=== PATIENT | female | born 1990 | race Caucasian/White ===

== ENCOUNTER 2017-02-16 20:33 | Inpatient (IN) | payer OTHER ==
[~2017-02-16] VITALS: Ht 162.6 cm; Wt 81.6 kg
[~2017-02-16 20:33] MED LIST: ALPRAZOLAM2 M2 PO; CARISOPRODOL350 M1 PO; GABAPENTIN400 M2 PO; LEVSIN/SL0.125 MG SL; MIRENA1 EACH; MOBIC15 M1 PO; SEROQUEL XR150 M1 PO; SUBOXONE 8 MG-1 EACH SL; TRAZODONE HCL100 M1 PO; ZOFRAN4 M1 SL
--- NOTE | 2017-02-16 20:52 | ED AMS/SEIZURE/WEAK/DIZZY ---
History of Present Illness General Chief Complaint: ETOH/Drug Related Complaint Stated Complaint: BIBA, OVERDOSE ON MEDS Source: patient, EMS, police Exam Limitations: intoxication Vital Signs & Intake/Output Vital Signs & Intake/Output Vital Signs Date Time Temp Pulse Resp B/P Pulse O2 O2 Flow FiO2 Ox Delivery Rate 02/17 0957 97.3 74 18 114/68 99 Room Air 02/17 0650 97.8 72 18 107/52 97 Room Air 02/16 2129 100 Room Air 02/16 2035 98.3 87 16 129/63 100 Room Air ED Intake and Output 02/17 0000 02/16 1200 Intake Total Output Total Balance Patient 180 lb Weight Allergies Coded Allergies: NO KNOWN ALLERGIES (07/19/11) Reconcile Medications Alprazolam 2 MG TABLET 1 TAB PO BID ANXIETY (Reported) Buprenorphine HCl/Naloxone HCl (Suboxone 8 MG-2 MG Sl Film) 8 MG-2 MG FILM 2 FILM SL QAM MENTAL HEALTH (Reported) Carisoprodol (Unknown Strength) TABLET (Unknown Dose) UNKNOWN (Reported) Dextroamphetamine/Amphetamine (Adderall XR 30 MG Capsule) 30 MG CAP.ER.24H 1 CAP PO QAM ADD (Reported) Eszopiclone 3 MG TABLET 1 TAB PO QPM SLEEP (Reported) Fluoxetine HCl 20 MG CAPSULE 80 MG PO DAILY MENTAL HEALTH (Reported) Levonorgestrel (Mirena) 20 MCG/24 HOUR (5 YEARS) IUD CONTROL (Reported) Quetiapine Fumarate 200 MG TABLET 1 TAB PO QPM SLEEP/MENTAL HEALTH (Reported) Triage Nurses Notes Reviewed? yes HPI: Patient presents for evaluation of a medication overdose. Patient states that she was going to a democrat and wanted to "have a really good time". She took 6 Soma and 6 Xanax tablets approximately 3 PM. She took a shower and was getting ready for the democrat. She states however that her fianc became concerned about the way she was behaving and spoke with her mother, who called the police. Patient was brought to the emergency department by ambulance. She denies suicide ideation or attempt. She has no specific complaints at this time other than feeling a little sleepy. (LISA MAN,AV Vacne) Past History Travel History Traveled to [place] past 21 day No Medical History Any Pertinent Medical History? 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 No (LISA MAN,AV Vance) Review of Systems Review of Systems Constitutional: Reports: no symptoms. EENTM: Reports: no symptoms. Respiratory: Reports: no symptoms. Cardiovascular: Reports: no symptoms. GI: Reports: no symptoms. Genitourinary: Reports: no symptoms. Musculoskeletal: Reports: no symptoms. Skin: Reports: no symptoms. Neurological/Psychological: Reports: no symptoms. Hematologic/Endocrine: Reports: no symptoms. Immunologic/Allergic: Reports: no symptoms. All Other Systems: Reviewed and Negative (LISA MAN,AV Vance) Physical Exam Physical Exam General Appearance: see below Comments: Gen.: Well-nourished, well-developed, no acute respiratory distress. Head: Normocephalic, atraumatic. Eyes: Normal inspection bilaterally, mild nystagmus with extraocular movement testing Ears: Normal inspection bilaterally Nose: Normal inspection Throat/mouth : Moist mucosa Neck: Supple, full range of motion, no goiter Heart: Regular rate and rhythm, no murmurs rubs or gallops Lungs: Clear to auscultation bilaterally with normal air entry Chest: Nontender Back: Normal range of motion Abdomen: Soft, nontender, nondistended, normal bowel sounds Extremities: Normal range of motion grossly, equal radial pulses, no cyanosis clubbing or edema Neurologic: Cranial nerves grossly intact, speech is mildly slurred but otherwise appropriate Skin: warm and dry Psychiatric: Calm, cooperative, no apparent delusions or hallucinations Core Measures ACS in differential dx? No CVA/TIA Diagnosis: No Severe Sepsis Present: No Septic Shock Present: No (LISA MAN,AV Vance) Progress Differential Diagnosis: recreational drug overdose Plan of Care: Orders Procedure Date/time Status Admit to inpatient psych 02/17 1134 Active Continuous Observation Monitor 02/17 0811 Active ED CRISIS PSYCH CONSULT 02/17 0811 Active ETHANOL 02/16 2317 Complete COMPREHENSIVE METABOLIC PANEL 02/16 2317 Complete CBC WITHOUT DIFFERENTIAL 02/16 2317 Complete URINE 02/17 2132 Complete URINE DRUG SCREEN FOR ER ONLY 02/17 2132 Complete URINALYSIS 02/17 2132 Complete Laboratory Tests 02/16/175: Anion Gap 6, Estimated GFR > 60, BUN/Creatinine Ratio 21.7, Glucose 94, Calcium 9.5, Total Bilirubin 0.3, AST 22, ALT 32, Alkaline Phosphatase 52, Total Protein 7.5, Albumin 4.1, Globulin 3.4, Albumin/Globulin Ratio 1.2, CBC w Diff NO MAN DIFF REQ, RBC 4.79, MCV 72.4 L, MCH 23.0 L, RDW 14.3, MPV 7.1 L, Gran % 61.9, Lymphocytes % 31.1, Monocytes % 5.9, Eosinophils % 0.8, Basophils % 0.3, Absolute Granulocytes 4.4, Absolute Lymphocytes 2.2, Absolute Monocytes 0.4, Absolute Eosinophils 0.1, Absolute Basophils 0, PUBS MCHC 31.8 L, Serum Alcohol < 10.0 02/16/172135: Urine Opiates Screen < 100.00, Methadone Screen < 40, Barbiturate Screen < 60, Ur Phencyclidine Scrn < 6.00, Amphetamines Screen > 1450 H, U Benzodiazepines Scrn > 800 H, Urine Cocaine Screen < 50, Urine Cannabis Screen < 5.00, Urine Color YEL, Urine Clarity CLEAR, Urine pH 6.5, Ur Specific [place] 1.025, Urine Protein NEG, Urine Ketones TRACE H, Urine Nitrite NEG, Urine Bilirubin NEG, Urine Urobilinogen 0.2, Ur Leukocyte Esterase NEG, Ur Microscopic EXAM NOT REQUIRED, Urine Hemoglobin NEG, Urine Glucose NEG, Urine Test NEGATIVE Initial ED EKG: none Comments: 02/16/2017 11:48:58 PM Keely is without complaint and appears awake alert oriented and conversant. Her speech is clear. Both medications taken are rapid in onset and peak serum times of about 1-2 hours. I feel the patient is stable for discharge. She will contact her fianc for a ride home. 02/17/2017 12:50:24 AM patient has a ride in the morning. 02/17/2017 7:25:03 AM patient signed out to Dr. Allen at [facility] [employer] [facility] [employer], awaiting a ride home. (LISA MAN,AV Vance) Departure Departure Condition: Stable Referrals: MELISSA MAN,MADELIN Cardona (PCP/Family) Additional Instructions: Take your medications only as prescribed. Follow-up with your primary care physician on Sunday for reevaluation. Return if any concerns or sudden worsening. Do not take any of your medications until tomorrow morning (if prescribed as such). Departure Forms: Customer Survey General Discharge Information (LISA MAN,AV Vance) Departure Disposition: STILL A PATIENT Clinical Impression Primary Impression: Medication overdose Qualifiers: Encounter type: initial encounter Injury intent: accidental or unintentional Qualified Code: T50.901A - Poisoning by unspecified drugs, medicaments and biological substances, accidental (unintentional), initial encounter Secondary Impressions: Depression Psych Admission Note Psychiatric Admission: I have seen and evaluated KEELY BHATT. I have also reviewed all the pertinent lab results and diagnostic results. KEELY BHATT will be admitted to our inpatient Psychiatric unit for treatment and care. (MARY MAN,MOISES Nicholas)
[2017-02-16] MEDS ORDERED: FLUOXETINE HCL20 M2 PO (21:37)
[2017-02-16] MEDS ORDERED: ESZOPICLONE3 M1 PO (21:37)
[2017-02-16] MEDS ORDERED: CARISOPRODOL350 M1 (21:37)
[2017-02-16] MEDS ORDERED: QUETIAPINE FUM200 M1 PO (21:38)
[2017-02-16] MEDS ORDERED: ADDERALL XR 3030 MG PO (21:39)
[2017-02-16 23:42] LABS: ABSOLUTE BASOPHIL COUNT 0 /CUMM (0.0-0.2); ABSOLUTE EOSINOPHIL COUNT 0.1 /CUMM (0.0-0.7); ABSOLUTE GRANULOCYTE CT 4.4 /CUMM (1.4-6.5); ABSOLUTE LYMPH COUNT 2.2 /CUMM (1.2-3.4); ABSOLUTE MONOCYTE COUNT 0.4 /CUMM (0.10-0.60); BASOPHIL % 0.3 % (0.0-2.0); EOSINOPHIL % 0.8 % (0-5); GRANULOCYTE % 61.9 % (42.2-75.2); HEMATOCRIT 34.7 % (37-47); MEAN CORPUSCULAR HGB CONC 31.8 G/DL (33.0-37.0); MEAN CORPUSCULAR VOLUME 72.4 FL (81.0-99.0); MEAN PLATELET VOLUME 7.1 FL (7.4-10.4); PLATELET COUNT 350 /CUMM (130-400); RBC DISTRIBUTION WIDTH 14.3 % (11.5-14.5); RED BLOOD CELL CT 4.79 /CUMM (4.20-5.40)
--- NOTE | 2017-02-17 12:42 | ED PSYCH CRISIS CONSULTATION ---
Crisis Consult Basic Assessment Date of Consult: 02/17/17 Responsible Person/Accompanied By: VAMSI on a PEER Insurance Authorization: Insurance #1: Insurance name: JONATAN ANTHONY Phone number: Policy number: [id number] Group number: Authorization number: ED Provider: Patient's ED Provider: AV GONZALEZ MD Primary Care Physician: Patient's PCP: MADELIN TORRES MD PCP's Current Psychiatrist: "Dr. Sarmiento from [facility]." Chief Complaint: ETOH/Drug Related Complaint Patient's Quote: "" I took too many pills." Present Illness: The patient is a 26 year old, single, female presenting to the ED, last evening, on a PEER after taking an overdose of Soma and Xanax. The patient was evaluated this AM and had depressed mood and was tearful. The patient resides with her mother (Aimee Clements- who is an RN) and her fiance Brayan. She has no children, is not currently in school and is due to start a job at [employer] on February 23. The patient denies that she took the pills in a suicide attempt and states that she took "them to have a good time," because she was going to a green party. She states that she "has a high tolerance and did not know that this would happen." She was initially apprehensive to disclose any information and denied having any mental health symptoms, because she wanted to go home. She denied any history of suicide attempts, however per mother Aimee Clements ([phone]), she had a significant suicide attempt in August 2016, in which she left a suicide note and required a medical admission, before being admitted to the psychiatric unit ([facility]). The patient does admit to having a history of Heroin abuse, stating shes been on Suboxone,(Prescribed by "Dr. Nicholas") and that "shes been clean for 5-6 months. She does abuse her Xanax and Soma, however she was very hesitant to admit this and is still not open to admitting she has a problem with pills. She states that she is prescribed Soma, Xanax and Adderall and that she takes them as prescribed. Per mom, Aimee, she counted the patient's Xanax and that there is significantly less in the bottle, then should be. Of note, Aimee states she flushed all of the pills down the toilet, of note the patient states that she has refills at the pharmacy. The patient states that she has been in and out of rehabs, "about 15 of them," and that she does not think that rehab would be helpful at this time. She notes that she has been to multiple outpatient providers and that there are various reasons why she has had to change from provider to provider. The patient denies any current or history of HI / AH / VH / delusions. The patient would like to go home and does not see the need for inpatient treatment at this time, however is willing to sign in if she has to stay. SW spoke to the patients mother, Aimee Clements, who is very concerned for ther daughters safety. Aimee notes that the patient has been depressed and has a history of attempting to kill herself. Aimee notes that she does not believe that last evening was a suicide attempt, however she is not sure that the patient can be safe. Aimee notes that the patient has had ongoing substance abuse issues and that she has been abusing her prescribed medications. Aimee states, "she's going to ." Aimee states that if the patient does not get into treatment, that she will no longer allow her to live with her. Patient's Address: [address] [place] [address] Other Phone Number: Who Do You Live With? Mother (and dorota- Brayan) Family/Informants Interviewed: Mother Aimee Clements [phone] Allergies - Coded Allergies: NO KNOWN ALLERGIES (07/19/11) Current Medications - Scheduled Medications Alprazolam 2 MG TABLET 1 TAB PO BID ANXIETY #28 (Reported) Entered as Reported by YULISA NGUYEN on 11/24/16 1623 Buprenorphine HCl/Naloxone HCl (Suboxone 8 MG-2 MG Sl Film) 8 MG-2 MG FILM 2 FILM SL QAM MENTAL HEALTH #14 FILM (Reported) Entered as Reported by YULISA NGUYEN on 11/24/16 1625 Dextroamphetamine/Amphetamine (Adderall XR 30 MG Capsule) 30 MG CAP.ER.24H 1 CAP PO QAM ADD #30 (Reported) Entered as Reported by YULISA NGUYEN on 02/16/172138 Eszopiclone 3 MG TABLET 1 TAB PO QPM SLEEP #14 (Reported) Entered as Reported by YULISA NGUYEN on 02/16/172136 Fluoxetine HCl 20 MG CAPSULE 80 MG PO DAILY MENTAL HEALTH #90 (Reported) Entered as Reported by YULISA NGUYEN on 02/16/172136 Quetiapine Fumarate 200 MG TABLET 1 TAB PO QPM SLEEP/MENTAL HEALTH #30 ( Reported) Entered as Reported by YULISA NGUYEN on 02/16/172137 Miscellaneous Medications Carisoprodol (Unknown Strength) TABLET (Unknown Dose) UNKNOWN #30 (Reported) Entered as Reported by YULISA NGUYEN on 02/16/172136 Levonorgestrel (Mirena) 20 MCG/24 HOUR (5 YEARS) IUD CONTROL (Reported) Entered as Reported by YULISA NGUYEN on 11/24/16 1625 Laboratory Results: Laboratory Tests 02/16/172334: Anion Gap 6, Estimated GFR > 60, BUN/Creatinine Ratio 21.7, Glucose 94, Calcium 9.5, Total Bilirubin 0.3, AST 22, ALT 32, Alkaline Phosphatase 52, Total Protein 7.5, Albumin 4.1, Globulin 3.4, Albumin/Globulin Ratio 1.2, CBC w Diff NO MAN DIFF REQ, RBC 4.79, MCV 72.4 L, MCH 23.0 L, RDW 14.3, MPV 7.1 L, Gran % 61.9, Lymphocytes % 31.1, Monocytes % 5.9, Eosinophils % 0.8, Basophils % 0.3, Absolute Granulocytes 4.4, Absolute Lymphocytes 2.2, Absolute Monocytes 0.4, Absolute Eosinophils 0.1, Absolute Basophils 0, PUBS MCHC 31.8 L, Serum Alcohol < 10.0 02/16/172135: Urine Opiates Screen < 100.00, Methadone Screen < 40, Barbiturate Screen < 60, Ur Phencyclidine Scrn < 6.00, Amphetamines Screen > 1450 H, U Benzodiazepines Scrn > 800 H, Urine Cocaine Screen < 50, Urine Cannabis Screen < 5.00, Urine Color YEL, Urine Clarity CLEAR, Urine pH 6.5, Ur Specific [place] 1.025, Urine Protein NEG, Urine Ketones TRACE H, Urine Nitrite NEG, Urine Bilirubin NEG, Urine Urobilinogen 0.2, Ur Leukocyte Esterase NEG, Ur Microscopic EXAM NOT REQUIRED, Urine Hemoglobin NEG, Urine Glucose NEG, Urine Test NEGATIVE Past History Past Medical History Neurological: migraine, SEIZURE (NO MEDS) EENT: NONE Cardiovascular: NONE Respiratory: NONE Gastrointestinal: NONE Hepatic: NONE Renal: NONE Musculoskeletal: chronic back pain Psychiatric: anxiety, depression, IV drug abuse, overdose Endocrine: NONE Blood Disorders: NONE Cancer(s): NONE TRASH MAN/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 Physical Limitations (Interventions): The patient does admit to having chronic pain issues. Psychiatric Treatment History Psych Treatment Psychiatric Treatment Yes Inpatient Treatment Yes Outpatient Treatment Yes Location of Treatment Inpatient at [facility] and multiple outpatient providers Reason for Treatment Suicide attempt and anxiety Dates of Treatment IP at [place] August 2016 and OP multiple dates Response to Treatment The patient was not able to state whether it was helpful or not. Diagnosis by History: anxiety, Poly Substance Substance Use/Abuse History Drug Use/Abuse Substances Used/Abused Yes Substance Used/Abused Benzodiazepines First Use Unclear Last Used Yesterday: 02/17/2017 How much used/taken "6 Soma and 6 Xanax" How often The patient is not forthcoming with substance abuse info For how long Unclear Substance Abuse Treatment Substance Abuse Treatment Past Substance Abuse TX Yes Inpatient Treatment Yes Outpatient Treatment Yes Location of Treatment "multiple rehabs in [place]" and various OP providers Reason for Treatment Heroin abuse Dates of Treatment She states last IP was "2 years ago." Response to Treatment The patient has been on Suboxone and has not sued Heroin in 5-6 months. Comments: N/A Current Mental Status Mental Status Orientation: Person, Place, Situation Affect: Depressed, Sad Speech: WNL Neuro-vegetative: The patient was guarded and denied all symptoms at this time. Per Mother she is depressed and has a poor view of herself. Appearance Appearance- Dress/Hygiene: The patient was sitting in the chair, in hospital attire and was neat , clean and well kempt. She had poor eye contact through the evaluation. Behaviors Thought Process: WNL Thought Content: WNL Memory: WNL Insight: Fair SI/HI Risk Assessment Past Suicidal Ideation/Attempts Yes (1 previous attempt) Current Suicidal Ideation/Att No Past Homicidal Ideation/Att: No Current Homicidal Ideation/Attempts No Degree of Intent: The patient took an intentional overdose of Xanax and Soma, she denies that it was a suicide attempt, however states she took 12 pills at one time., The patient did have a significant suicide attempt in August of 2016. Danger To: Self Gravely Disabled: Lack of Insight, Poor Judgment Risk Factors: history of suicide atmpts, SA/MH hospitalized, substance abuse, poor impulse control Lethality Ratin PTSD Checklist PTSD Done? patient declined (Denies Trauma or abuse hx.) ED Management Sitter: Yes Restraints: No DSM5/PS Stressors/Medical Prob Diagnosis' (DSM 5, Stressors, Medical): F32.9 Unspecified Depressive Disorder, F41.9 Unspecified Anxiety Disorder and F13.20 Sedative, Hypnotic and Anxiolytic Disorder. Medical: Unremarkable Stressors: Relationship issues with mother, school, finances. Current GAF: 28 Comments: N/A Departure Disposition Psych Medical Clearance Date: 02/17/17 Medically Cleared at: 0700 Time Started: 1000 Time Ended: 1145 Psychiatrist Consulted: Weston MAN,Edward Date Disposition Established: 02/17/17 Time Disposition Established: 1145 Plan for Disposition - Modality: Inpatient Psychiatry Facility: [facility] Contact: N/A Telephone: N/A Rationale for Disposition: The patient was brought to ED on a PEER, after taking an overdose of Soma and Xanax. The patient presents depressed, anxious and is tearful. She is guarded and demonstrates poor judegement. She does have a significant history of substance abuse issues. Case discussed with Dr. Ontiveros and he finds her to be an acute risk to self and in need of an inpatient admission at this time. The patient did sign a voluntary form. Type of IP Admission: Voluntary Additional Instructions: N/A Referrals MELISSA MAN,MADELIN Cardona (PCP/Family)
--- NOTE | 2017-02-17 12:51 | IP CRISIS DIAG ASSESS PSYCH ---
See Addendum Diagnostic Assessment Basic Assessment Insurance Authorization: Insurance #1: Insurance name: JONATAN ANTHONY Phone number: Policy number: [id number] Group number: Authorization number: Primary Care Physician: Patient's PCP: MADELIN TORRES MD PCP's Patient's Quote: " I took too many pills." Present Illness: The patient is a 26 year old, single, female presenting to the ED, last evening, on a PEER after taking an overdose of Soma and Xanax. The patient was evaluated this AM and had depressed mood and was tearful. The patient resides with her mother (Aimee Clements- who is an RN) and her fiance Brayan. She has no children, is not currently in school and is due to start a job at [employer] on February 23. The patient denies that she took the pills in a suicide attempt and states that she took "them to have a good time," because she was going to a libertarian. She states that she "has a high tolerance and did not know that this would happen." She was initially apprehensive to disclose any information and denied having any mental health symptoms, because she wanted to go home. She denied any history of suicide attempts, however per mother Aimee Clements ([phone]), she had a significant suicide attempt in August 2016, in which she left a suicide note and required a medical admission, before being admitted to the psychiatric unit ([facility]). The patient does admit to having a history of Heroin abuse, stating shes been on Suboxone,(Prescribed by "Dr. Nicholas") and that "shes been clean for 5-6 months. She does abuse her Xanax and Soma, however she was very hesitant to admit this and is still not open to admitting she has a problem with pills. She states that she is prescribed Soma, Xanax and Adderall and that she takes them as prescribed. Per mom, Aimee, she counted the patient's Xanax and that there is significantly less in the bottle, then should be. Of note, Aimee states she flushed all of the pills down the toilet, of note the patient states that she has refills at the pharmacy. The patient states that she has been in and out of rehabs, "about 15 of them," and that she does not think that rehab would be helpful at this time. She notes that she has been to multiple outpatient providers and that there are various reasons why she has had to change from provider to provider. The patient denies any current or history of HI / AH / VH / delusions. The patient would like to go home and does not see the need for inpatient treatment at this time, however is willing to sign in if she has to stay. HANNA spoke to the patients mother, Aimee Clements, who is very concerned for ther daughters safety. Aimee notes that the patient has been depressed and has a history of attempting to kill herself. Aimee notes that she does not believe that last evening was a suicide attempt, however she is not sure that the patient can be safe. Aimee notes that the patient has had ongoing substance abuse issues and that she has been abusing her prescribed medications. Aimee states, "she's going to ." Aimee states that if the patient does not get into treatment, that she will no longer allow her to live with her. Patient's Address: [address] [place] [address] Other Phone Number: Who Do You Live With? Mother (and dorotaCosta Brayan) Feel Safe Where You Live? Yes Feel Safe in Your Relationship Yes Marital Status: single Do You Have Children? No Primary Language? Belgian Family/Informants Interviewed: Mother Aimee Clements [phone] Allergies - Coded Allergies: NO KNOWN ALLERGIES (07/19/11) Current Medications - Scheduled Medications Alprazolam 2 MG TABLET 1 TAB PO BID ANXIETY #28 (Reported) Entered as Reported by YULISA NGUYEN on 11/24/16 1623 Buprenorphine HCl/Naloxone HCl (Suboxone 8 MG-2 MG Sl Film) 8 MG-2 MG FILM 2 FILM SL QAM MENTAL HEALTH #14 FILM (Reported) Entered as Reported by YULISA NGUYEN on 11/24/16 1625 Dextroamphetamine/Amphetamine (Adderall XR 30 MG Capsule) 30 MG CAP.ER.24H 1 CAP PO QAM ADD #30 (Reported) Entered as Reported by YULISA NGUYEN on 02/16/17 2139 Eszopiclone 3 MG TABLET 1 TAB PO QPM SLEEP #14 (Reported) Entered as Reported by YULISA NGUYEN on 02/16/172136 Fluoxetine HCl 20 MG CAPSULE 80 MG PO DAILY MENTAL HEALTH #90 (Reported) Entered as Reported by YULISA NGUYEN on 02/16/172136 Quetiapine Fumarate 200 MG TABLET 1 TAB PO QPM SLEEP/MENTAL HEALTH #30 ( Reported) Entered as Reported by YULISA NGUYEN on 02/16/172137 Miscellaneous Medications Carisoprodol (Unknown Strength) TABLET (Unknown Dose) UNKNOWN #30 (Reported) Entered as Reported by YULISA NGUYEN on 02/16/172136 Levonorgestrel (Mirena) 20 MCG/24 HOUR (5 YEARS) IUD CONTROL (Reported) Entered as Reported by YULISA NGUYEN on 11/24/161624 Consequences of Psych Med Use: N/A Comment: N/A Lab Results: Laboratory Tests 02/16/172334: Anion Gap 6, Estimated GFR > 60, BUN/Creatinine Ratio 21.7, Glucose 94, Calcium 9.5, Total Bilirubin 0.3, AST 22, ALT 32, Alkaline Phosphatase 52, Total Protein 7.5, Albumin 4.1, Globulin 3.4, Albumin/Globulin Ratio 1.2, CBC w Diff NO MAN DIFF REQ, RBC 4.79, MCV 72.4 L, MCH 23.0 L, RDW 14.3, MPV 7.1 L, Gran % 61.9, Lymphocytes % 31.1, Monocytes % 5.9, Eosinophils % 0.8, Basophils % 0.3, Absolute Granulocytes 4.4, Absolute Lymphocytes 2.2, Absolute Monocytes 0.4, Absolute Eosinophils 0.1, Absolute Basophils 0, PUBS MCHC 31.8 L, Serum Alcohol < 10.0 02/16/172135: Urine Opiates Screen < 100.00, Methadone Screen < 40, Barbiturate Screen < 60, Ur Phencyclidine Scrn < 6.00, Amphetamines Screen > 1450 H, U Benzodiazepines Scrn > 800 H, Urine Cocaine Screen < 50, Urine Cannabis Screen < 5.00, Urine Color YEL, Urine Clarity CLEAR, Urine pH 6.5, Ur Specific Lebo 1.025, Urine Protein NEG, Urine Ketones TRACE H, Urine Nitrite NEG, Urine Bilirubin NEG, Urine Urobilinogen 0.2, Ur Leukocyte Esterase NEG, Ur Microscopic EXAM NOT REQUIRED, Urine Hemoglobin NEG, Urine Glucose NEG, Urine Test NEGATIVE Toxicology Screen Completed? Yes Results: positive (Amphetamines and Benzodiazepin) Symptoms of Use: N/A Past History Past Medical History Medical History: None/Denies Past Surgical History Surgical History non-contributory, D&C 4 Abuse/Trauma History Trauma History/Current Trauma: Denies Legal History Current Legal Status: Open case in [place] for retail theft, that she needs to take care of. Have you ever been arrested? Yes Number of Arrests: 0 (Unclear- Guarded) Pending Court Dates: The patient denies any open court dates, but states that she needs to go to [place] to take care of an arrest. Office Support Assistant N/A Psychosocial History Strengths/Capabilities: The patient has stable living and has good support from her mother and fiance. Physical Limitations (Interventions): The patient does admit to having chronic pain issues. Psychiatric Treatment History Psych Treatment Psychiatric Treatment Yes Inpatient Treatment Yes Outpatient Treatment Yes Location of Treatment Inpatient at [facility] and multiple outpatient providers Reason for Treatment Suicide attempt and anxiety Dates of Treatment IP at [place] August 2016 and OP multiple dates Response to Treatment The patient was not able to state whether it was helpful or not. Diagnosis by History: anxiety, Poly Substance Risk Factors: history of suicide atmpts, SA/MH hospitalized, substance abuse, poor impulse control Substance Use/Abuse History Drug Use/Abuse minimum 12mo Hx 1 Substances Used/Abused Yes Substance Used/Abused Benzodiazepines First Use Unclear Last Used Yesterday: 02/17/2017 How much used/taken "6 Soma and 6 Xanax" How often The patient is not forthcoming with substance abuse info For how long Unclear Drug Use/Abuse minimum 12mo Hx 2 Substances Used/Abused Yes Substance Used/Abused Benzodiazepines (and Soma) First Use Unclear Last Used Yesterday: 02/17/2017 How much used/taken The patient is not forthcoming with information re: abusing medications How often She does admit to taking more then prescribed, sometimes. For how long Unclear Substance Abuse Treatment Substance Abuse Treatment Past Substance Abuse [place] Yes Inpatient Treatment Yes Outpatient Treatment Yes Location of Treatment "multiple rehabs in [place]" and various OP providers Reason for Treatment Heroin abuse Dates of Treatment She states last IP was "2 years ago." Response to Treatment The patient has been on Suboxone and has not sued Heroin in 5-6 months. Comments: The patient is currently on Suboxone and has not used Heroin in 5-6 months. Sexual History Sexual Concerns: None noted Education History Highest Level of Education: some college Preferred Learning Style: Unclear Current Mental Status Mental Status Orientation: Person, Place, Situation Affect: Depressed, Sad Speech: WNL Neuro-vegetative: The patient was guarded and denied all symptoms at this time. Per Mother she is depressed and has a poor view of herself. Appearance Appearance- Dress/Hygiene: The patient was sitting in the chair, in hospital attire and was neat , clean and well kempt. She had poor eye contact through the evaluation. Behaviors Thought Process: WNL Thought Content: WNL Memory: WNL Insight: Fair SI/HI Risk Assessment - Minimum 6mo History- Past Suicidal Ideation/Attempts Yes (1 previous attempt) Current Suicidal Ideation/Att No Past Homicidal Ideation/Att: No Current Homicidal Ideation/Attempts No Degree of Intent: The patient took an intentional overdose of Xanax and Soma, she denies that it was a suicide attempt, however states she took 12 pills at one time. The patient did have a significant suicide attempt in August of 2016. Danger To: Self Gravely Disabled: Lack of Insight, Poor Judgment Risk Factors: history of suicide atmpts, SA/MH hospitalized, substance abuse, poor impulse control Lethality Ratin Needs/Init TX Plan/Goals: Admit to the inpatient unit to maintain safety and stabilize symptoms. Participate in family, group and individual therapy. Work with treatment team to transition to care in the community. AUDIT-C Questionnaire: AUDIT-C Questionnaire: Response Value ETOH use in the past year Monthly or less 1 # drinks typical/day Doesn't Drink 0 6 or > drinks per occasion Never 0 Total 1 DSM5/PS Stressors/Medical Prob Diagnosis' (DSM 5, Stressors, Medical): F32.9 Unspecified Depressive Disorder, F41.9 Unspecified Anxiety Disorder and F13.20 Sedative, Hypnotic and Anxiolytic Disorder. Medical: Unremarkable Stressors: Relationship issues with mother, school, finances. Current GAF: 28 Comments: N/A
--- NOTE | 2017-02-17 12:58 | SOCIAL WORKER SOCIAL HX PSYCH ---
Social History Basic Assessment Insurance Authorization: Insurance #1: Insurance name: JONATAN ANTHONY Phone number: Policy number: [id number] Group number: Authorization number: Curr Source of Income/Entitlements: She is supported by her mother and dorota Primary Care Physician: Patient's PCP: MADELIN TORRES MD PCP's Present Problem: The patient is a 26 year old, single, female presenting to the ED, last evening, on a PEER after taking an overdose of Soma and Xanax. The patient was evaluated this AM and had depressed mood and was tearful. The patient resides with her mother (Aimee Clements- who is an RN) and her fimarley Schmidt. She has no children, is not currently in school and is due to start a job at [employer] on February 23. The patient denies that she took the pills in a suicide attempt and states that she took "them to have a good time," because she was going to a alliance party. She states that she "has a high tolerance and did not know that this would happen." She was initially apprehensive to disclose any information and denied having any mental health symptoms, because she wanted to go home. She denied any history of suicide attempts, however per mother Aimee Clements ([phone]), she had a significant suicide attempt in August 2016, in which she left a suicide note and required a medical admission, before being admitted to the psychiatric unit ([facility]). The patient does admit to having a history of Heroin abuse, stating shes been on Suboxone,(Prescribed by "Dr. Nicholas") and that "shes been clean for 5-6 months. She does abuse her Xanax and Soma, however she was very hesitant to admit this and is still not open to admitting she has a problem with pills. She states that she is prescribed Soma, Xanax and Adderall and that she takes them as prescribed. Per mom, Aimee, she counted the patient's Xanax and that there is significantly less in the bottle, then should be. Of note, Aimee states she flushed all of the pills down the toilet, of note the patient states that she has refills at the pharmacy. The patient states that she has been in and out of rehabs, "about 15 of them," and that she does not think that rehab would be helpful at this time. She notes that she has been to multiple outpatient providers and that there are various reasons why she has had to change from provider to provider. The patient denies any current or history of HI / AH / VH / delusions. The patient would like to go home and does not see the need for inpatient treatment at this time, however is willing to sign in if she has to stay. HANNA spoke to the patients mother, Aimee Clements, who is very concerned for ther daughters safety. Aimee notes that the patient has been depressed and has a history of attempting to kill herself. Aimee notes that she does not believe that last evening was a suicide attempt, however she is not sure that the patient can be safe. Aimee notes that the patient has had ongoing substance abuse issues and that she has been abusing her prescribed medications. Aimee states, "she's going to ." Aimee states that if the patient does not get into treatment, that she will no longer allow her to live with her. Primary Language? Hungarian Living Situation Other Living Arrangement: relative's/guardian's anuradha (Lives with her mother) Residential Care/Treatment Fac N/A Feel Safe Where You Are Living Yes Feel Safe in Relationships? Yes Comments: N/A Allergies - Coded Allergies: NO KNOWN ALLERGIES (07/19/11) Current Medications - Scheduled Medications Alprazolam 2 MG TABLET 1 TAB PO BID ANXIETY #28 (Reported) Entered as Reported by YULISA NGUYEN on 11/24/16 1623 Buprenorphine HCl/Naloxone HCl (Suboxone 8 MG-2 MG Sl Film) 8 MG-2 MG FILM 2 FILM SL QAM MENTAL HEALTH #14 FILM (Reported) Entered as Reported by YULISA NGUYEN on 11/24/16 1625 Dextroamphetamine/Amphetamine (Adderall XR 30 MG Capsule) 30 MG CAP.ER.24H 1 CAP PO QAM ADD #30 (Reported) Entered as Reported by YULISA NGUYEN on 02/16/17 2139 Eszopiclone 3 MG TABLET 1 TAB PO QPM SLEEP #14 (Reported) Entered as Reported by YULISA NGUYEN on 02/16/17 2137 Fluoxetine HCl 20 MG CAPSULE 80 MG PO DAILY MENTAL HEALTH #90 (Reported) Entered as Reported by YULISA NGUYEN on 02/16/172136 Quetiapine Fumarate 200 MG TABLET 1 TAB PO QPM SLEEP/MENTAL HEALTH #30 ( Reported) Entered as Reported by YULISA NGUYEN on 02/16/172137 Miscellaneous Medications Carisoprodol (Unknown Strength) TABLET (Unknown Dose) UNKNOWN #30 (Reported) Entered as Reported by YULISA NGUYEN on 02/16/172136 Levonorgestrel (Mirena) 20 MCG/24 HOUR (5 YEARS) IUD CONTROL (Reported) Entered as Reported by YULISA NGUYEN on 11/24/16 1625 Consequences of Psych Med Use: N/A Comments: N/A Past History Past Medical History Neurological: migraine, SEIZURE (NO MEDS) EENT: NONE Cardiovascular: NONE Respiratory: NONE Gastrointestinal: NONE Hepatic: NONE Renal: NONE Musculoskeletal: chronic back pain Psychiatric: anxiety, depression, IV drug abuse, overdose Endocrine: NONE Blood Disorders: NONE Cancer(s): NONE SUMATRA OPENER/Reproductive: NONE Past Surgical History Surgical History: unobtainable /Family History Place/Country of Origin: [place], [place] Childhood Family Constellation: The patient states that she was raised by her mother, with a sister and a brother. She is not clear about how present her father was. Primary Childhood Caretakers: mother Family Life During Childhood: "it was good." The patient did become upset when she was discussing her mother always being at work and being hard on her. Explain: N/A Mother's Age (Current/): 0 (Unclear) Relationship w/Mother: The patient notes that her mother "is very dramatic." She does live with her mother and is primarily supported by mother. Father's Age (Current/): 0 (Unclear) Relationship w/Father: The patient did not elaborate on her relationship with her father. Any Sibling(s)? Yes Sibling's Gender(s)/Age(s): male Sibling 1:, female Sibling 2: Relationship w/Sibling(s): The patient states that she does not really have a relationship with her siblings. Relationship w/Friends: The patient does have a very supportive fiance. Family Psych/Sub Abuse/Add Hx: The patient does note some family members with drug and alcohol abuse. Number of Pregnancies: 1 Number of Miscarriages: 0 Number of Abortions: 1 Other Comments: N/A Abuse/Trauma History Trauma History/Current Trauma: Denies Abuse/Trauma Treatment: N/A Legal History Legal Guardian/Address/Phone: Self Current Legal Status: none, The patient notes that she does have some an old arrest that she needs to take care of in [place], Retail theft. Pending Court Dates: N/A Have you ever been arrested Yes Number of Arrests: 0 (Unclear- Guarded) Hx of Juvenile Legal Charges? No (Unknown) Hx of Adult Legal Charges? Yes If Yes: "Retail theft for $42.53. List/Date Most Recent Lgl Chgs: Retail theft Chgs/Dts/Incarcerations/Sentnc Retail theft in [place] Civil Proceedings: N/A Domestic Relations Court: N/A Child Protective Serv Involvmnt N/A Staff Pharmacist Hospital N/A Psychosocial History Primary Support System: mother, fiance Strengths/Capabilities: The patient has stable living and has good support from her mother and fiance. Weaknesses: The patient has significant substance abuse issues. Physical Limitations (Interventions): The patient does admit to having chronic pain issues. Last Physical: Unknown History of Seizures? No (Pt. denies) History of Blackouts? No (Pt. denies) ADL Limitations: N/A Downs/Social/Peer Relations The patient states that she isolates at home and spends time with her mother and fiance. Meaningful Activities: None noted Childhood Mosque: no latter day stated Current Mandaeism Affiliation: no latter day stated Is Spirituality Important to You? "No" Cultural/Ethnic Issues: None noted Are There Developmental Issues? No Psychiatric Treatment History Psych Treatment Inpatient Treatment Yes Outpatient Treatment Yes Location of Treatment Inpatient at [facility] and multiple outpatient providers Reason for Treatment Suicide attempt and anxiety Dates of Treatment IP at [facility] August 2016 and OP multiple dates Response to Treatment The patient was not able to state whether it was helpful or not. Current Morals Squad Police Officer: "Dr. Sarmiento" in [place] Treatment of Prior Episodes: Multiple individual providers, the patient did not elaborate on specifics. Diagnosis: anxiety, Poly Substance Psychodynamic Issues: The patient states that she has always had issues with her mother. Risk Factors: history of suicide atmpts, SA/MH hospitalized, substance abuse, poor impulse control Substance Use/Abuse History Drug Use/Abuse 1 Substance Used/Abused Benzodiazepines (and Soma) First Use Unclear Last Used Yesterday: 02/17/2017 How much used/taken The patient is not forthcoming with information re: abusing medications How often She does admit to taking more then prescribed, sometimes. For how long Unclear Drug Use/Abuse 2 Substance Used/Abused Heroin First Use Unclear Last Used "5-6 months ago" How much used/taken Unclear How often Unclear For how long Unclear Route of use Unclear Have Had Periods of Sobriety? Yes Explain: The patient states that she has been on Suboxone and has been clean from Heroin for 5-6 months ago. The patient considered herself to be "clean," however does admit to abusing her Xanax and Soma. Relapse History? Yes Explain: Despite going to multiple treatment facilities the patient continues to abuse Xanax and Soma. Have You Ever Attended AA? No Do You Attend AA Currently? No Do You Have a Sponsor? No Other Community Resources Used: None noted Symptoms of Use: N/A Substance Abuse Treatment Substance Abuse Treatment Inpatient Treatment Yes Outpatient Treatment Yes Location of Treatment "multiple rehabs in [place]" and various OP providers Reason for Treatment Heroin abuse Dates of Treatment She states last IP was "2 years ago." Response to Treatment The patient has been on Suboxone and has not sued Heroin in 5-6 months. Comments: N/A Sexual History Sexual Concerns: None noted Education History Highest Level of Education: some college Highest Grade Completed: Graduated High School Vocational Year Completed: N/A Number of College Years: 3 College Degree/Major: The pt. did not finish a degree Other Degree(s): N/A Preferred Learning Style: Unclear HX of Learning Difficulties: None reported Barriers to Learning: None reported Special Communication Needs: None reported Employment History Employment Unemployed Not in Labor Force: The patient states that she has not worked in 2 years, secondary to her "record." She notes that she will be starting a new job on 02/23 at [employer]. Vocation/Occupational Hx: N/A No. of Jobs in Last 5 Years: 0 (Unclear) Attendance: N/A Comments: N/A History Have You Been in The ? No If Yes, Explain: N/A Type of Discharge: N/A Date of Discharge: N/A Current Mental Status Mental Status Orientation: Person, Place, Situation Affect: Depressed, Sad Speech: WNL Neuro-vegetative: The patient was guarded and denied all symptoms at this time. Per Mother she is depressed and has a poor view of herself. Appearance Appearance- Dress/Hygiene: The patient was sitting in the chair, in hospital attire and was neat , clean and well kempt. She had poor eye contact through the evaluation. Behaviors Thought Process: WNL Thought Content: WNL Memory: WNL Insight: Fair SI/HI Risk Assessment Past Suicidal Ideation/Attempts Yes (1 previous attempt) Current Suicidal Ideation/Att No Past Homicidal Ideation/Att: No Current Homicidal Ideation/Attempts No Degree of Intent: The patient took an intentional overdose of Xanax and Soma, she denies that it was a suicide attempt, however states she took 12 pills at one time. The patient did have a significant suicide attempt in August of 2016. Danger To: Self Gravely Disabled: Lack of Insight, Poor Judgment Risk Factors: High Anxiety/Distress, SA/MH Hospitalization(s), Substance Abuse Lethality Ratin - Conclusion and Recommendations for treatment - and discharge planning Summary: The patient was brought to ED on a PEER, after taking an overdose of Soma and Xanax. The patient presents depressed, anxious and is tearful. She is guarded and demonstrates poor judegement. She does have a significant history of substance abuse issues. Case discussed with Dr. Ontiveros and he finds her to be an acute risk to self and in need of an inpatient admission at this time. The patient did sign a voluntary form.
[2017-02-17 13:55] VITALS: BP 115/57
[2017-02-17 16:41] VITALS: BP 124/65
[2017-02-17 19:35] VITALS: BP 128/62
[2017-02-17 20:09] VITALS: BP 128/62
[2017-02-18] VITALS (8 sets, daily range): BP systolic 117–130; BP diastolic 58–71
--- NOTE | 2017-02-18 10:31 | Cons- Medical ---
General Information and HPI Consulting Request Date of Consult: 02/17/17 Requested By: ANNETTA MAN,SKYLER Vickers Reason for Consult: Medical H & P Source of Information: patient, old records Exam Limitations: no limitations History of Present Illness: 26-year-old young woman no significant past medical history other than opiate use and depressive symptoms with previous suicidal attempt in [place]. She denies any chronic medical conditions. She says Dr. Vale is a PCP and she sees him pretty regularly. She denies any IV drug abuse. She denies any alcohol abuse. She does smoke cigarettes. She denies any chest pain, shortness of breath, cough ,sputum or any other complaints. Allergies/Medications Allergies: Coded Allergies: NO KNOWN ALLERGIES (07/19/11) Home Med List: Alprazolam 2 MG TABLET 1 TAB PO BID ANXIETY (Reported) Buprenorphine HCl/Naloxone HCl (Suboxone 8 MG-2 MG Sl Film) 8 MG-2 MG FILM 2 FILM SL QAM MENTAL HEALTH (Reported) Carisoprodol (Unknown Strength) TABLET (Unknown Dose) UNKNOWN (Reported) Dextroamphetamine/Amphetamine (Adderall XR 30 MG Capsule) 30 MG CAP.ER.24H 1 CAP PO QAM ADD (Reported) Eszopiclone 3 MG TABLET 1 TAB PO QPM SLEEP (Reported) Fluoxetine HCl 20 MG CAPSULE 80 MG PO DAILY MENTAL HEALTH (Reported) Levonorgestrel (Mirena) 20 MCG/24 HOUR (5 YEARS) IUD CONTROL (Reported) Quetiapine Fumarate 200 MG TABLET 1 TAB PO QPM SLEEP/MENTAL HEALTH (Reported) Current Medications: Current Medications Sig/Terry Start time Last Medication Dose Route Stop Time Status Admin Buprenorphine/ 2 TAB 02/17 1500 AC 02/18 Naloxone SL 0808 Fluoxetine HCl 40 MG 00 02/18 0800 AC 02/18 PO 0808 Fluoxetine HCl 20 MG ONCE ONE 02/17 1530 DC 02/17 PO 02/17 1531 1728 Influenza Virus 0.5 ML ONCE ONE 02/17 1430 CAN Vaccine IM 02/17 1500 Lorazepam 1 MG 0800,1400,02/17 1500 AC 02/18 PO 0808 Lorazepam 1 MG Q4H PRN 02/17 1500 AC PO Lorazepam 1.5 MG Q4H PRN 02/17 1500 AC PO Lorazepam 1 MG Q8H PRN 02/17 1500 AC PO Melatonin 8 MG AT BEDTIME NEED.. 02/17 1515 AC 02/17 PO 2111 Quetiapine Fumarate 50 MG Q2H PRN 02/17 1515 AC 02/17 PO 2111 Review of Systems Review of Systems Constitutional: Denies: no symptoms, chills, diaphoresis, fever. Cardiovascular: Denies: no symptoms, chest pain, edema, orthopena. Respiratory: Denies: no symptoms, cough, hemoptysis, orthopnea. GI: Denies: no symptoms, abdominal pain, bloating, constipation. Genitourinary: Denies: no symptoms, discharge, dysuria. All Other Systems: Reviewed and Negative Past History Travel History Traveled to [place] past 21 day No Medical History Neurological: migraine, SEIZURE (NO MEDS) EENT: NONE Cardiovascular: NONE Respiratory: NONE Gastrointestinal: NONE Hepatic: NONE Renal: NONE Musculoskeletal: chronic back pain Psychiatric: anxiety, depression, IV drug abuse, overdose Endocrine: NONE Blood Disorders: NONE Cancer(s): NONE DRYER FEEDER/Reproductive: NONE Surgical History Surgical History: unobtainable Psychosocial History Where Do You Live? Home Smoking Status: Current Some Day Smoker ETOH Use: denies use Illicit Drug Use: denies illicit drug use Other Social History: She is currently unemployed but says that she is going to start working at [employer] soon. She was previously hospitalized at [place] for the suicide attempt a while ago. She does say that there is some history of cancer in her grandfather she thinks it may be colon but she's not sure. He is sexually active and monogamous with her boyfriend. They don't use condoms but she has a Mirena ring. She says she's been HIV and hepatitis tested fairly recently and is negative. Functional Ability ADLs Independent: dressing, eating, toileting, bathing. Employment History Employment: Unemployed Profession/Employer: N/A Exam & Diagnostic Data Last 24 Hrs of Vital Signs/I&O Vital Signs Date Time Temp Pulse Resp B/P Pulse O2 O2 Flow FiO2 Ox Delivery Rate 02/18 826 77 117/58 02/18 0813 77 117/58 02/17 2009 97.2 73 128/62 02/17 1935 97.2 73 128/62 02/17 1641 69 124/65 02/17 1641 69 124/65 03/25 1355 95.9 69 115/57 02/17 1312 98.0 68 16 115/56 98 Room Air Physical Exam General Appearance: well developed/nourished, no apparent distress, alert, awake Head: atraumatic, normal appearance Eyes: Bilateral: normal appearance, PERRL, EOMI. 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 nml as tested Skin: intact (4 tatoos) Last 24 Hrs of Labs/Duarte: Laboratory Tests 02/16 02/16 2335 2136 Chemistry Sodium (137 - 145 mmol/L) 136 L Potassium (3.5 - 5.1 mmol/L) 4.4 Chloride (98 - 107 mmol/L) 103 Carbon Dioxide (22 - 30 mmol/L) 27 Anion Gap (5 - 16) 6 BUN (7 - 17 mg/dL) 13 Creatinine (0.5 - 1.0 mg/dL) 0.6 Estimated GFR (>60 ml/min) > 60 BUN/Creatinine Ratio (7 - 25 %) 21.7 Glucose (65 - 99 mg/dL) 94 Calcium (8.4 - 10.2 mg/dL) 9.5 Iron (37 - 170 ug/dL) 64 TIBC (265 - 497 ug/dL) 290 Total Bilirubin (0.2 - 1.3 mg/dL) 0.3 AST (14 - 36 U/L) 22 ALT (9 - 52 U/L) 32 Alkaline Phosphatase (<127 U/L) 52 Total Protein (6.3 - 8.2 g/dL) 7.5 Albumin (3.5 - 5.0 g/dL) 4.1 Globulin (1.9 - 4.2 gm/dL) 3.4 Albumin/Globulin Ratio (1.1 - 2.2 %) 1.2 Vitamin B12 (239 - 931 pg/mL) 322 Folate (2.76 - 20.0 ng/mL) 11.2 TSH (0.270 - 4.200 uIU/mL) 3.930 Free T4 (0.79 - 2.35 ng/dL) 0.81 Thyroxine (T4) (4.5 - 10.9 ug/dL) 5.9 Hematology CBC w Diff NO MAN DIFF REQ WBC (4.8 - 10.8 /CUMM) 7.0 RBC (4.20 - 5.40 /CUMM) 4.79 Hgb (12.0 - 16.0 G/DL) 11.0 L Hct (37 - 47 %) 34.7 L MCV (81.0 - 99.0 FL) 72.4 L MCH (27.0 - 31.0 PG) 23.0 L RDW (11.5 - 14.5 %) 14.3 Plt Count (130 - 400 /CUMM) 350 MPV (7.4 - 10.4 FL) 7.1 L Gran % (42.2 - 75.2 %) 61.9 Lymphocytes % (20.5 - 51.1 %) 31.1 Monocytes % (1.7 - 9.3 %) 5.9 Eosinophils % (0 - 5 %) 0.8 Basophils % (0.0 - 2.0 %) 0.3 Absolute Granulocytes (1.4 - 6.5 /CUMM) 4.4 Absolute Lymphocytes (1.2 - 3.4 /CUMM) 2.2 Absolute Monocytes (0.10 - 0.60 /CUMM) 0.4 Absolute Eosinophils (0.0 - 0.7 /CUMM) 0.1 Absolute Basophils (0.0 - 0.2 /CUMM) 0 PUBS MCHC (33.0 - 37.0 G/DL) 31.8 L Toxicology Urine Opiates Screen (>2000 NG/ML) < 100.00 Methadone Screen (>300 NG/ML) < 40 Barbiturate Screen (>200 NG/ML) < 60 Ur Phencyclidine Scrn (>25 NG/ML) < 6.00 Amphetamines Screen (>1000 NG/ML) > 1450 H U Benzodiazepines Scrn (>200 NG/ML) > 800 H Urine Cocaine Screen (>300 NG/ML) < 50 Urine Cannabis Screen (>50 NG/ML) < 5.00 Serum Alcohol (<10 MG/DL) < 10.0 Urines Urine Color (YEL,AMB,STR) YEL Urine Clarity (CLEAR) CLEAR Urine pH (5.0 - 8.0) 6.5 Ur Specific [place] (1.001 - 1.035) 1.025 Urine Protein (NEG,<30 MG/DL) NEG Urine Ketones (NEG) TRACE H Urine Nitrite (NEG) NEG Urine Bilirubin (NEG) NEG Urine Urobilinogen (0.1 - 1.0 EU/dl) 0.2 Ur Leukocyte Esterase (NEG) NEG Ur Microscopic EXAM NOT REQUIRED Urine Hemoglobin (NEG) NEG Urine Glucose (N MG/DL) NEG Urine Test NEGATIVE Assessment/Plan Assessment/Plan 26-year-old female with opioid abuse, question polysubstance abuse although she tends to minimize it and depressive symptoms. Treatment as per psychiatry. She declines HIV and hepatitis testing right now , says she's had that fairly recently. She knows to follow-up with Dr. Vale as an outpatient when she leaves here and tobacco cessation counselled. Problem List: 1. Depression 2. Narcotic drug use Copies To: MELISSA MAN,MADELIN Cardona Consult Acknowledgment - Thank you for your consult request.
--- NOTE | 2017-02-18 15:15 | CPS MD/APRN INITIAL ASSE PSYCH ---
Psychiatric Admission Fish Machine Feeder's Note Reviewed: Yes Patient Seen and Examined: Yes Identifying Information: This is the 1st [facility] admission for a 26-year-old single, childless but engaged woman currently living with her fiance (Brayan) and mother (who is a nurse) in [facility], and unemployed (but says she is set to begin work at [employer] on 02/23/2017). Chief Complaint: "I took too many pills." Reaction to Hospitalization: ambivalent but signed in as a voluntary patient History of Present Illness Onset of Illness: Patient was to go to a "going away alliance party" for a friend accompanied by her fiance and decided she would "take extra" Soma and Xanax (#6 tablets of each) in order to "have a little fun" at the alliance party. However, as a result of the above patient became "lethargic" and was BIBA on a PEER. Patient denies drug use/abuse on the part of her fianceBrayan. Circumstances Leading to Admission: becoming obtunded as a result of excessive/over self-medicating (with Soma and Xanax) prior to attending a alliance party Problem(s) Justifying Need for Admission: protentially serious overdose with lack of judgment; recent history of taking an overdose which required medical and psych admissions to [facility] Other HPI: has most recently been medicated by a "Dr. Nicholas" in [facility]; she denies recalling the doctor's last name. He prescribes Suboxone and patient claims that his drug prescriptions are her only outpatient treatment at this time. 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 presentations and hospital admissions usually associated with substance abuse and/or overtaking of prescribed abusable substances - Include inpatient and outpatient treatment Treatment History: claims to have been treated at "15" rehabs in the past; was in a rehab in [place] a couple of years ago during which she was treated with Suboxone and asserts she "did best" for a while after that; this is patient's 4th E.D. visit to [place] related to substance abuse/overdose since 2010; she noted her mother has been finding patient's visits with "Dr. Nicholas" (at $150.00 for every Suboxone prescription) difficult to afford and patient told me mother had urged her to take only one, rather than her prescribed two, suboxone tabs a day "in order to save some up;" claims to have tried to get into the [place] dual focus program but was told they could not prescribe her her Suboxone History of Suicide Attempts or Gestures made a serious overdose in Fall of 2015 and admitted to medical and psychiatric services of [facility] Substance Abuse History: mainly opioids and benzodiazepines for past 6+ years but may also include Soma, amphetmines, etc. Allergies: Coded Allergies: NO KNOWN ALLERGIES (07/19/11) Home Med List: Xanax, 2mg 2x/day Suboxone, 16/4mg SL daily in AM Adderall XR, 30mg daily Prozac, 60mg daily in AM Seroquel, 200mg HS also: carisoprodol ("unknown strength") eszopiclone, 3mg HS levonorgestrel (Mirena), 20mg/24 hours (IUD) - Include any medical condition(s) that may - impact the patient's recovery/remission Past History Medical History Neurological: migraine, SEIZURE (NO MEDS) EENT: NONE Cardiovascular: NONE Respiratory: NONE Gastrointestinal: NONE Hepatic: NONE Renal: NONE Musculoskeletal: chronic back pain Psychiatric: anxiety, depression, insomnia, IV drug abuse, opioid dependence, substance abuse (including amphetamine, Soma), overdose Endocrine: NONE Blood Disorders: NONE Cancer(s): NONE VERIFICATION LEAD/Reproductive: NONE History of MRSA: No History of VRE: No History of CDIFF: No Isolation History: Standard Surgical History Surgical History: non-contributory, D&C 4 (had one ) Psychiatric Family/Social Hx Family History Psychiatric Illness: unknown Substance Use: "some" family members with drug and alcohol issues Suicides: unknown Other Family History: noncontributory at this time Social History Living Situation: (see above under Identifying Information) Significant Relationships (family/friends): --has fiance she has known for over 3 years and a 5-year-old relationship prior to that --has concerned and involved mother (who is a nurse) Education: some college Vocation/Occupation: has not worked in "two years;" claims this is "because of [her] 'record';" says she is currently scheduled to begin a job at [employer] 02/23/2017 Legal: apparently has a case open in [place] involving a retail theft (of only around $ 50.00) Other Social History: noncontributory at this time Healthly Behaviors Screening Tobacco Screening Tobacco Use from ED Docu: Current Not Daily - If tobacco counseling indicated - the following topics are required. - #1 Recognizing dangerous situations. - #2 Coping Skills. - #3 Basic information about quitting. Status of Tobacco Cessation Counseling: #1, #2 AND #3 Completed Cessation Med Status: Pt Refused Cessation Meds (nicotine patch/gum offered ) Alcohol Screening - ETOH screen POS if BAL >=80 or Audit-C>= M4/F3 Audit-C Score from Diag Assess: 1 Blood Alcohol Level: Laboratory Tests 02/16 2335 Toxicology Serum Alcohol (<10 MG/DL) < 10.0 Alcohol Use Screening Results: Neg per Audit C &/or BAL - If ETOH counseling indicated - the following topics are required. - #1 Express concern about the patient's - drinking at unhealthy levels, include informing - of national norms for moderate drinking: - men <= 14 drinks/week, max 4 drinks/occasion - women <= 7 drinks/week, max 3 drinks/occasion - #2 Providing feedback, including linking alcohol to - negative physical effects (liver injury, hypertension) - negative emotional effects (relationship problems and - depression) - negative occupational consequences (reduced work - performance) - #3 Advising the patient to abstain from alcohol or - to drink below national norms for moderate drinking - (as listed above). Status of ETOH Use Counseling: N/A B/C NO ETOH Use Metabolic Screening - Screen if on a Neuroleptic Medication - Metabolic screening should include: - Blood Pressure, BMI, Glucose or Hgb A1c, & a - Lipid profile from within the past 365 days. Metabolic Screening () Not Applicable, patient not on a neuroleptic. OR ([X]) Patient on a neuroleptic(s) . Enter below results for Glucose or Hemoglobin A1C, and lipid panel if obtained during the last 365 days. BMI: 30.900 Blood Pressure: 130/68 Laboratory Results (If applicable): [X] glucose = 94 (on 02/16/2017) (lipid panel ordered from blood drawn on 02/16/2017) Exam and Plan Mental Status Examination Ambulation Status: without assistance Appearance: neat and well groomed Attitude towards examiner: somewhat ambivalent at first but better later during interview Psychomotor activity: normal Behavior: appropriate Quality of speech: normal Affect: full range Mood: euthymic; denied being "depressed" or sad Suicidal Ideation: denied Homicidal Ideation: denied Hallucinations: no evidence of; denied Paranoid/Delusional Material: no evidence of; denied Difficulties with thought organization: not noted Insight: very limited Judgment: poor, as judged by recent behavior PUBLIC RELATIONS MANAGER Orientation: full Cognition: intact Memory Function: intact Estimate of intellectual functioning: average Assets/Strengths Patient Identified Assets/Strengths: --close relationship with fiance --close relationship with mother --desire to work and opportunity to do so now --ability to remain off oral opioids or heroin Impression/Plan Impression and Plan: Patient appears to be undertreated since her discharge from inpatient psychiatric unit at [facility], currently receiving (several) medications/ drugs but no therapy from a psychiatrist in [place]. She claims to have "tried " to gain admission to the [facility] since [place] discharge but has not been able to get in (?problem with being on Suboxone; ?problem related to insurance; ?other). Despite polysubstances, including Suboxone, Xanax, Soma, Adderall, ?others, and recent overdose, patient does not appear to be significantly acutely depressed; she claims that since increase in dose of Prozac (which she had been on for a extended interval at 40mg/day) to 60mg/day a few weeks PUBLIC RELATIONS MANAGER she had been doing better generally despite the poor judgment she demonstrated in "taking extra pills to 'alliance party'" immediately PUBLIC RELATIONS MANAGER. - Include all active medical diagnosis that require tx DSM 5 Diagnosis(es): Unspecifed Depression with recent history of overdosing in 08/2016 but not immediately prior to current admission Opioid Use Disorder Opioid Dependence (prescribed Suboxone PUBLIC RELATIONS MANAGER) Sedative/Hypnotic/Anxiolytic Use Disorder (recently prescribed and may also be abusing Xanax) R/O amphetamine Use Disorder R/O abuse of muscle relaxants (e.g. Soma) - Initial Tx Plan for Active Psych & Medical Conditions Treatment Plan: We will titrate dose of Prozac back up to 60mg/day and continue at that dose because patient had only recently PUBLIC RELATIONS MANAGER been titrated up from 40mg daily. We will try to help with DFA problem but limit the doses of Seroquel and trazodone, add melatonin. We will medicate anxiety with Neurontin and agitation with Seroquel. We will hold a family meeting with patient and her mother (Nyand Brayan raya) as soon as possible (perhaps as soon as 02/19/2017). We will explore referring patient to intensive aftercare in the [place] dual focus [facility], see if the impediments to her earlier entry there can be overcome. - Factors that would help patient function - in a less restrictive setting. Factors: --meaningful and sincere participation in planned family meeting with mother (wendy) --acceptance in [facility] focus (Suboxone) IOP
[2017-02-19] VITALS (8 sets, daily range): BP systolic 122–131; BP diastolic 55–69
--- NOTE | 2017-02-19 12:12 | CP SOUTH PROGRESS NOTE PSYCH ---
Psych (Inpt) Progress Note Progress Note Include the following elements, when applicable: Involvement in the active treatment of the patient with behavioral observations of the patient and the patient's response to the treatment. Review of the ongoing treatment process in the context of the treatment plan. Indication of how multi-disciplinary staff members are carrying out the treatment plan. Plans for future interventions and recommendations for revision of the treatment plan. Liaison with other physicians/providers. Progress Note: [I discussed this patient's progress to date, current mental status, treatment process in the context of the treatment plan, and discharge planning with staff/ team in the daily morning inpatient team meeting. I also met with the patient myself in individual session.] S: "I'm fine, I'm not depressed or anxious." O: Current Medications Sig/Terry Start time Last Medication Dose Route Stop Time Status Admin Buprenorphine/ 2 TAB 02/17 1500 AC 02/19 Naloxone SL 0813 Fluoxetine HCl 60 MG 02/19 0800 AC 02/19 PO 0812 Fluoxetine HCl 40 MG 02/18 0800 DC 02/18 PO 0808 Gabapentin 400 MG Q4H PRN 02/18 1630 AC 02/18 PO 2045 Lorazepam 0.5 MG 1999,02/18 2000 AC 02/19 PO 02/24 1459 0814 Lorazepam 1 MG 0800,1399,02/17 1500 DC 02/18 PO 1317 Lorazepam 1 MG Q4H PRN 02/17 1500 AC PO Lorazepam 1.5 MG Q4H PRN 02/17 1500 AC PO Lorazepam 1 MG Q8H PRN 02/17 1500 DC PO Melatonin 8 MG AT BEDTIME 02/18 2200 AC 02/18 PO 2108 Melatonin 8 MG AT BEDTIME NEED.. 02/17 1515 DC 02/17 PO 2111 Quetiapine Fumarate 100 MG AT BEDTIME 02/18 2200 AC 02/18 PO 2108 Quetiapine Fumarate 50 MG Q6H PRN 02/18 1630 AC PO Quetiapine Fumarate 50 MG Q2H PRN 02/17 1515 DC 02/17 PO 2111 Trazodone HCl 100 MG AT BEDTIME 02/18 2200 AC 02/18 PO 2108 Vital Signs Date Time Temp Pulse Resp B/P Pulse O2 O2 Flow FiO2 Ox Delivery Rate 02/19 1203 67 129/55 02/19 0823 97.7 80 122/61 02/19 0806 97.7 80 122/61 02/18 2003 97.5 73 126/71 02/18 1957 97.5 73 126/71 02/18 1631 74 130/68 02/18 1554 74 130/68 02/18 1240 98.3 72 119/64 A: Chart, progress notes, VS, labs, CIWA scores (0-2 x last 24 hours), and medication list were reviewed. CT AUTO RADIO MECHANIC reviewed. A family meeting was held today with the patient, her mother, Melony SanchezMONTRELL and this scientific technical writer. The patient's treatment progress to date, medication regimen, psychiatric and substance abuse history, and discharge planning were reviewed and discussed. Patient denied during family meeting that overdose was a suicide attempt, despite a prior history of suicide attempt by overdose in August 2016 which was verified by her mother. Patient reported that she was attempting to get "high" prior to attending a libertarian. She denied intentionally trying to harm herself. Her mother also expressed that she did not feel Keely's behaviors were an attempt at suicide. She expressed that Keely has a longstanding history of substance abuse, and did not know she was being prescribed both xanax and adderall by her outpatient psychiatrist. He mother reported that she flushed all of Keely's controlled prescriptions and called her psychiatrist notifying him that Keely is in the hospital. The patient denied suicidal ideation while on unit. Reported tolerating Ativan taper well and denied untoward medication effects. She was agreeable to participating in Dual [facility] post-discharge, but express concern of how it may interfere with a new job she is schedued to start on 02/22/17. Today, patient reported tolerating all medication changes well and denied untoward medication effects. She denied urges or cravings to use drugs/alcohol. She denied acute symptoms of anxiety and depression. She reported her sleep and appetite were "good." She denied passive and active suicidal ideation, plans and intent. She again denied that OD was a suicidal attempt. She denied homicidal ideation, auditory and visual hallucinations. Thought process was organized and goal-directed. She was future oriented to start working at [employer] on . Thought content was appropriate. Cognition was grossly intact. Patient was agreeable to continue taking all prescribed medications. JOSTIN was obtained to speak to Dr. Shawn Alfredo. Collateral was obtained ([phone]). Per Dr. Alfredo: Keely's primary issue is substance abuse with anxiety and panic disorder, with a suspected underlying diagnosis of bipolar disorder. He has been treating Keely for apporx 1 month. Has met with her on 2- 3 occasions. Most recently, Prozac 40mg was increased to 60mg daily. During last encounter, depression was stable. Patient was not suicidal, nor expressed feelings of hopelessness or helplessness. She was consistently med seeking on all encounters. Frequently asked for increases in Xanax and additional prescriptions for other benzodiazepines. He reported that he had planned to taper Keely off of controlled medications as she came to him already on these medications. Dr. Alfredo was in agreement with recommendation for patient to discharge to a dual IOP level of care. I asked Dr. Alfredo if he would continue to prescribe Suboxone once the patient graduates from [facility]. He reported that he would not continue treating Keely. P: 1. Continue monitoring patient on unit for safety and mood. 2. Continue current psychiatric medications. 3. Refer to Dual IOP. 4. Continue monitoring patient on [facility] protocol for Xanax withdrawal. Continue Ativan as prescribed.
--- NOTE | 2017-02-19 14:02 | SOCIAL WORKER PROG NOTE PSYCH ---
Social Work Progress Note Progress Note Spoke with Keely, who shared that she "accidently" overdosed as she was going to a republican. She reported taking 6 Soma and 6 Xanax. "I wanted a buzz". Denies that this is a regular occurance. Keely lives with her Mom Aimee Clements [phone] and her fiance. Keely reports that her Mom is available to come in for a family meeting today. She usually sees a Dr. Garcia" in [address] once a month. She also has a therapist that she sees in [place] - Jg fabrice ([place]?) she just started seeing him, due to her other therapist leaving. She has been to multiple rehabs in the past. She is currently on Suboxone. She denies other drug use, other than some cannabis. She reports that he fiance has a medical marijuana card. She says that she suffers with some chronic pain issues. 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 She recently got Soma from an urgent care clinic in [place]. Keely stated she starts a new job on Sunday at [employer] and is hoping to be discharged prior so she can start. Mom came in for a family meeting. Milvia Hutchinson APRN was also part of the meeting. Mom's concerns were related to the psychiatrist prescribing Xanax and Adderall to her, when she overdosed on Xanax in August 2016 in a suicide attempt. She was not aware that Keely was on these medications again, but had picked up on her "acting not like herself recently". She would like her to be seen by another prescriber who is going to pay attention to her past and not be willing to prescribe these type of medications. She realizes that Keely "doctor shops" to get what she wants and that at 26 she needs to be able to recognize addictive behavior and make changes. Discussed the possibility of her attending IOP if we can get a committment for Dr. Sarmiento to contine the suboxone when she is done with IOP or another provider willing to do it. Keely denies any current suicidality. She doesn't acknowledge any depression. She typically "worries" about lots of things and that's why she continues to seek out Xanax. Talked about needing to find alternative coping mechanisms or non-addictive meds to help her. She is thinking that work will help. She is a little worried about how her work schedule will work with IOP, since she doesn't have her schedule yet. She is also interested in rejoining a gym. Milvia Hutchinson APRN talked to Dr. Garcia" and he is not willing to see her anymore. Called [facility] in [place] and spoke with Lucy ([phone]). Lucy asked to do a phone screening with Keely. I got her on the phone and I believe everything is set for her to receive services there, but I will confirm with Lucy tomorrow. Set up a tentative IOP intake for 12:45 tomorrow.
[2017-02-20 07:51] VITALS: BP 125/68
[2017-02-20 07:55] VITALS: BP 129/65
[2017-02-20] MEDS ORDERED: QUETIAPINE FUM100 M1 PO (09:16)
[2017-02-20] MEDS ORDERED: MELATONIN5 M7 PO (09:16)
[2017-02-20] MEDS ORDERED: TRAZODONE HCL100 M1 PO (09:16)
[2017-02-20] MEDS ORDERED: FLUOXETINE HCL60 MG PO (09:16)
--- NOTE | 2017-02-20 10:10 | CP SOUTH PROGRESS NOTE PSYCH ---
Psych (Inpt) Progress Note Progress Note Include the following elements, when applicable: Involvement in the active treatment of the patient with behavioral observations of the patient and the patient's response to the treatment. Review of the ongoing treatment process in the context of the treatment plan. Indication of how multi-disciplinary staff members are carrying out the treatment plan. Plans for future interventions and recommendations for revision of the treatment plan. Liaison with other physicians/providers. Progress Note: [I discussed this patient's progress to date, current mental status, treatment process in the context of the treatment plan, and discharge planning with staff/ team in the daily morning inpatient team meeting. I also met with the patient myself in individual session.] S: "I feel good, I'm ready for IOP." O: Current Medications Sig/Terry Start time Last Medication Dose Route Stop Time Status Admin Buprenorphine/ 2 TAB 02/17 1500 DCD 02/20 Naloxone SL 0816 Fluoxetine HCl 60 MG 02/19 0800 DCD 02/20 PO 0818 Gabapentin 400 MG Q4H PRN 02/18 1630 DCD 02/18 PO 2045 Lorazepam 0.5 MG 02/20 0800 DC 02/20 PO 02/20 0801 0817 Lorazepam 0.5 MG 1999,02/18 2000 DC 02/19 PO 02/24 1459 2140 Lorazepam 1 MG Q4H PRN 02/17 1500 DCD PO Lorazepam 1.5 MG Q4H PRN 02/17 1500 DCD PO Melatonin 10 MG AT BEDTIME 02/20 2200 DCD PO Melatonin 8 MG AT BEDTIME 02/18 2200 DC 02/19 PO 2140 Quetiapine Fumarate 100 MG AT BEDTIME 02/18 2200 DCD 02/19 PO 2140 Quetiapine Fumarate 50 MG Q6H PRN 02/18 1630 DCD PO Trazodone HCl 100 MG AT BEDTIME 02/18 2200 DCD 02/19 PO 2140 Vital Signs Date Time Temp Pulse Resp B/P Pulse O2 O2 Flow FiO2 Ox Delivery Rate 02/20 0755 96.5 96 129/65 02/20 0751 96.0 96 125/68 02/19 1951 97.9 69 131/69 02/19 1944 97.9 69 131/69 02/19 1609 68 124/66 02/19 1607 68 124/66 A: Chart, progress notes, VS, CIWA scores, labs and medication list were reviewed. Nursing reported this morning that patient was only agreeable to taking 1 SL tab of Suboxone this morning of of the 2 SL tabs ordered. Nursing reported that although patient had been prescribed 2 SL strips of Suboxone outpatient that she had reported only taking 1 daily at home. Met with patient today on the date of discharge. She corroborated the above information, reporting she only takes 1 8/2mg strip of Suboxone daily outside of the hospital. CT SYSTEMS CHECKOUT MECHANIC verified that she had been prescribed #60 8/2mg SL strips for 30 days. Today, patient presented alert and oriented to person, place, time and situation. Speech was normal in rate, tone and volume. Affect was calm and full- range. Mood was "good." She had no compaints. She reported she tolerated completed Ativan taper well and denied denied symptoms of benzodiazepine withdrawal. Vital signs were stable. She denied feeling hopeless, helpless, worthless or guilty. She reported protective factors her "mom," "fiance," and "new job." She reported depression of 0/10 (10 being the worst) and anxiety of 0 /10 (10 being the worst). She denied active and passive suicidal ideation, plans and intent. She denied homicidal ideation. She stated and also believed she will not harm herself or others. She denied urges or cravings to use non-prescribed prescription substances or illicits. She verbalized openess to trial new meetings for support in sobriety. She expressed motivation to engage in dual IOP intake, and will attend intake today at 12:45PM. She was future oriented to begin new job at [employer] on 02/23/17. Her thought process was organized and goal-directed. Thought content was appropriate. Cognition was grossly intact. Patient reported tolerating all medications well and denied untoward medication effects. She reported feeling safe and ready for discharge. Patient verbalized having an adequate supply of prescription suboxone at home which was verified on CT SYSTEMS CHECKOUT MECHANIC today. P: 1. Discharge today into the care of her mother. 2. F/u with dual IOP intake at 12:45PM today. 3. F/u with [facility] in [place], [place] for Suboxone management. 4. All discharge prescriptions were printed, reviewed with patient and provided to patient on discharge. Patient verbalized understanding of instructions. 5. In the event of an emergency, call 911/go to nearest emergency department. Patient verbalized understanding of all instructions.
--- NOTE | 2017-02-20 11:12 | SOCIAL WORKER PROG NOTE PSYCH ---
Social Work Progress Note Progress Note Called [facility] in [place] to speak with Lucy [phone]. Left 2 messages to follow up on Keely's screening from yesterday. Informed Keely that we were planning for discharge today and that the IOP intake is scheduled for 12:45pm. She asked if I could contact her Mom to let her know and to go with her to the appt. Called Mrs. Clements and informed her of the plan. She will be here to pick her up at 12:30pm. Talked with Keely about her follow up and wished her well in her new job. Talked about the rewards of work. She seems happy that she will have something to do during the day, because when she has too much time on her hands it's problematic for her. Sent a message to IOP Coordinator Hiwot Garcia LPC asking if they can assist in the follow up to [facility] since I did not receive a call back.
--- NOTE | 2017-02-20 11:29 | DISCHARGE SUMMARY REPORT-PSYCH ---
Visit Information Visit Dates/Diagnosis' Admission Date: 02/17/17 Discharge Date: 02/20/17 Reason for Admission: S/p drug ingestion without suicidal intent. Psy Discharge Primary Diag: Unspecified depressive disorder with recent history of overdosing in 08/2016, but not immediately prior to current admission. Psy Discharge Secondary Diag: Opioid use disorder, prescribed Suboxone; Sedative /hypnotic/ anxiolytic use disorder; R/O amphetamine use disorder; R/O abuse of muscle relaxants (e.g. Soma). Hospital Course Significant Lab Findings: Lab Cholesterol/HDL Ratio 5 % H 02/16/17 2335 HDL Cholesterol 36 mg/dL L 02/16/17 2335 Amphetamines Screen 281 NG/ML 02/19/17 0830 U Benzodiazepines Scrn > 800 NG/ML H 02/19/17 0830 Urine Test NEGATIVE 02/16/176 Course Complications: None. Consultations: The patient was seen for admission history and physical by sports lawyer Dr. Mickie Wilson. Please see her note for additional information. Allergies: Coded Allergies: NO KNOWN ALLERGIES (07/19/11) Hospital Course/TX Response: The patient was monitored on the unit for safety, mood, suicidal ideation, and benzodiazepine withdrawal. She participated in multimodal treatments on the unit. Xanax 2mg twice daily was discontinued. The patient successfully completed an Ativan taper without complications. Adderall XR 30mg daily was discontinued. Carisoprodol 250mg three times daily was discontinued. Eszopiclone 3mg at bedtime was discontinued. Suboxone 16/4mg SL daily was initially continued during hospitalization and was decreased to 8/2mg SL daily as the patient reported she was only taking this dose at home. Seroquel 200mg at bedtime was decreased to 100mg at bedtime for insomnia and Trazodone 100mg was started at bedtime for insomnia/depression. Prozac 60mg daily was continued for anxiety/ depression. Patient reported tolerating all medications well and denied untoward medication effects. During the hospital course, the patient's mood and affect improved. She consistently denied suicidal ideation and denied that overdose was a suicide attempt and rather was an attempt to get "high.". A family meeting was held with the patient, her mother, Melony Sanchez LCSW, and this fiction and nonfiction prose writer. The patient's treatment progress, psychiatric and substance abuse history, level of safey, and discharge planning were reviewed and discussed. The patient's mother's primary concerns were related to the patient's substance abuse and her lack of knowledge that patient was being prescribed multiple controlled substances on an outpatient basis. The patient's mother expressed no safety concerns outside of the patient's substance abuse. Both the patient and her mother were ultimately in favor of patient following up at [facility]. Additionally, the patient was reffered to [facility] in [place], [place] for continued Suboxone management. On the date of discharge, 02/20/17, the patient presented alert and oriented to person, place, time and situation. Speech was normal in rate, tone and volume. Affect was calm and full-range. Mood was "good." She had no compaints. She reported successfully completing Ativan taper and denied symptoms of benzodiazepine withdrawal. Vital signs were stable. CIWA was negative. She denied feeling hopeless, helpless, worthless or guilty. She reported protective factors her "mom," "fiance," and "new job." She reported depression of 0/10 (10 being the worst) and anxiety of 0/10 (10 being the worst). She denied active and passive suicidal ideation, plans and intent. She denied homicidal ideation. She stated and also believed she will not harm herself or others. She denied urges or cravings to use non-prescribed prescription substances or illicits. She verbalized openess to trial new meetings for support in sobriety. She expressed motivation to engage in dual IOP intake, and will attend intake today at 12:45PM. She was future oriented to begin new job at [employer] on 02/23/17. Her thought process was organized and goal-directed. Thought content was appropriate. Cognition was grossly intact. Patient reported tolerating all medications well and denied untoward medication effects. She reported feeling safe and ready for discharge. Patient verbalized having an adequate supply of prescription suboxone at home which was verified on [place] DRAWING SUPERVISOR today. Discharge HBIPS - Tobacco Use Treatment Offered Post DC Medications Offered: Refused Tob Medication Tx Post DC Tobacco Treatment Plan: Refused Tobcco Tx Pgm - EtOH/Drug Use D/O Treatment Offered Post DC Medications Offered: Ref Med EtOH/Drug Use D/O Post DC EtOH/SubAbuse TX Plan: [place] SubAbuse/Dual IOP Program Appt Date: 02/20/17 Program Appt Time: 1245 Metabolic Screening - Screen if on a Neuroleptic Medication - Metabolic screening should include: - Blood Pressure, BMI, Glucose or Hgb A1c, & a - Lipid profile from within the past 365 days. Metabolic Screening () Not Applicable, patient not on a neuroleptic. OR ([X]) Patient on a neuroleptic(s) . Enter below results for Glucose or Hemoglobin A1C, and lipid panel if obtained during the last 365 days. BMI: 30.900 Blood Pressure: 129/65 Laboratory Results (If applicable): Lab Cholesterol 165 MG/DL 02/16/172334 Cholesterol/HDL Ratio 5 % H 02/16/172334 Glucose 94 mg/dL 02/16/172334 HDL Cholesterol 36 mg/dL L 02/16/172334 LDL Cholesterol, Calc 108 mg/dL 02/16/172334 Triglycerides 108 mg/dL 02/16/172334 Discharge Instructions General Discharge Information Discharge Medications: Discharge Medications- (Dose, route, freq, indication): HOME MEDICATION LIST START taking these NEW Home Medications: Fluoxetine HCl Dose: ORAL, DAILY for Qty: 14 Printed (Fluoxetine HCl) 60 1 Tablet anxiety/depression Refills: 0 MG TABLET Take 1 tablet by mouth every morning. Last Taken:02/20/17 Time:8am Trazodone HCl Dose: ORAL, AT BEDTIME for Qty: 14 Printed (Trazodone HCl) 100 100 Milligram insomnia/depression Refills: 0 MG TABLET Take 1 tablet by mouth at bedtime. Last Taken:02/19/17 Time:10pm Quetiapine Fumarate Dose: ORAL, AT BEDTIME for Qty: 14 Printed (Quetiapine 100 Milligram insomnia/anxiety Refills: 0 Fumarate) 100 MG Take 1 tablet by mouth TABLET at bedtime. Last Taken:02/19/17 Time:10pm Melatonin Dose: ORAL, AT BEDTIME for Qty: 28 Printed (Melatonin) 5 MG 10 Milligram insomnia Refills: 0 TABLET Take 2 tablets (10mg) by mouth at bedtime. 8mg DOSE Last Taken:02/19/17 Time:10pm CONTINUE taking these Home Medications: Buprenorphine HCl/ Dose: SUBLINGUAL, Every Naloxone HCl (Suboxone 8 1 Film Morning for opiate MG-2 MG Sl Film) 8 MG-2 treatment MG FILM Last Taken:02/20/17 Time:8am Levonorgestrel (Mirena) Dose: , for CONTROL 20 MCG/24 HOUR (5 YEARS) PER PT IUD STOP taking these DISCONTINUED Home Medications: Alprazolam (Alprazolam) 2 MG Dose: ORAL, TWICE DAILY for ANXIETY TABLET 1 Tablet Reason Stopped: Per Doctor Decision Eszopiclone (Eszopiclone) 3 MG Dose: ORAL, Every night for SLEEP TABLET 1 Tablet Reason Stopped: Per Doctor Decision Carisoprodol (Carisoprodol) Dose: , for UNKNOWN (Unknown Strength) TABLET Unknown Dose Reason Stopped: Per Doctor Decision Dextroamphetamine/Amphetamine Dose: ORAL, Every Morning for ADD (Adderall XR 30 MG Capsule) 30 1 Capsule Reason Stopped: Per Doctor MG CAP.ER.24H Decision Multiple Neuroleptics: ([X]) Not Applicable OR Document below three failed attempts at monotherapy, or a plan to taper to monotherapy, or augmentation of Clozapine. () Patient's Diet: Regular. Patient's Activity: No restrictions. DC Disposition: To return home to [facility] and fiance. Recommendations: Patient was advised to please take medications as prescribed. She was advised to abstain from all non-prescribed substances, illicits, and alcohol. She was strongly advised to attend daily NA meetings and obtain a sponsor for support in sobriety. She was advised to follow-up with outpatient referrals (see in the below section). She was advised that in the event of an emergency to call 911/go to nearest emergency department. Patient verbalized understanding of all instructions. Referred To: Intensive Outpatient Program at [facility] for 02[facility]20/17 12[facility]45pm [facility] [place] [place] [phone] Please call to verify intake date/time. Copies To: Dr. Shawn Alfredo; [facility]; [facility]
== END 2017-02-20 12:50 | DRG 754 ==
LOC: ERH 20:33 → CP SOUTH 02-17 11:34 → ERHI 02-17 11:34 → CP SOUTH 02-17 13:48
PROVIDERS: Emergency Medicine; ADMIT Psychiatry & Neurology Addiction Medicine
DX: F32.9 Major depressive disorder, single episode, unspecified (principal); F11.10 Opioid abuse, uncomplicated; F13.10 Sedative, hypnotic or anxiolytic abuse, uncomplicated
CPT/HCPCS: 80307; 81003; 81025; G0480; Q2036

== ENCOUNTER 2018-06-22 20:44 | Emergency (ER) | payer OTHER ==
[~2018-06-22 20:44] MED LIST changes: +ADDERALL XR 3030 MG PO; +CARISOPRODOL350 M1; +ESZOPICLONE3 M1 PO; +FLUOXETINE HCL20 M2 PO; +FLUOXETINE HCL60 MG PO; +MELATONIN5 M7 PO; +QUETIAPINE FUM100 M1 PO; +QUETIAPINE FUM200 M1 PO; +SEROQUEL200 M1 PO
[2018-06-22 20:46] VITALS: BP 120/82
[2018-06-22] MEDS ORDERED: ATIVAN1 M1 PO (22:17)
--- NOTE | 2018-06-22 22:19 | ED GENERAL ADULT ---
History of Present Illness General Chief Complaint: General Adult Stated Complaint: "NEED SOMETHING FOR MY SLEEP." PER PT Source: patient Exam Limitations: no limitations Vital Signs & Intake/Output Vital Signs & Intake/Output Vital Signs Date Time Temp Pulse Resp B/P B/P Pulse O2 O2 Flow FiO2 Mean Ox Delivery Rate 06/22 2046 97.1 109 18 120/82 99 Room Air Allergies Coded Allergies: NO KNOWN ALLERGIES (07/19/11) Reconcile Medications Buprenorphine HCl/Naloxone HCl (Suboxone 8 MG-2 MG Sl Film) 8 MG-2 MG FILM 1 FILM SL QAM opiate treatment (Reported) Fluoxetine HCl 60 MG TABLET 1 TAB PO DAILY anxiety/depression Take 1 tablet by mouth every morning. Levonorgestrel (Mirena) 20 MCG/24 HOUR (5 YEARS) IUD CONTROL (Reported) Melatonin 5 MG TABLET 10 MG PO AT BEDTIME insomnia Take 2 tablets (10mg) by mouth at bedtime. Quetiapine Fumarate (Seroquel) 200 MG TABLET 1 TAB PO QPM PRN insomnia Quetiapine Fumarate 100 MG TABLET 100 MG PO AT BEDTIME insomnia/anxiety Take 1 tablet by mouth at bedtime. Trazodone HCl 100 MG TABLET 2 TAB PO QPM PRN insomnia Triage Note: PT TO TRIAGE REQUESTING SOMETHING TO HELP HER SLEEP. STATES SHE HAS BEEN TAKING TRAZADONE AND SEROQUEL WITHOUT EFFECT. HX BIPOLAR, APPT WITH ON SUNDAY BUT PT STATES SHE CANNOT FALL ASLEEP AT NIGHT BUT THEN SLEEPS UNTIL LATE IN THE AFTERNOON EVERY DAY. Triage Nurses Notes Reviewed? yes : No Patient currently breastfeeds: No HPI: Patient presents for evaluation of insomnia. Patient states that she has been taking Seroquel and trazodone for "a long time" for insomnia. She saw one of her physicians about 1-1/2-2 weeks ago who initiated temazepam to help with her sleep. She states it's not helping. Past History Travel History Traveled to [place] past 21 day No Medical History Any Pertinent Medical History? 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 No Review of Systems Review of Systems Constitutional: Reports: no symptoms. EENTM: Reports: no symptoms. Respiratory: Reports: no symptoms. Cardiovascular: Reports: no symptoms. GI: Reports: no symptoms. Genitourinary: Reports: no symptoms. Musculoskeletal: Reports: no symptoms. Skin: Reports: no symptoms. Neurological/Psychological: Reports: see HPI. Hematologic/Endocrine: Reports: no symptoms. Immunologic/Allergic: Reports: no symptoms. All Other Systems: Reviewed and Negative Physical Exam Physical Exam General Appearance: SEE BELOW Comments: Gen.: Well-nourished, well-developed, no acute respiratory distress. Head: Normocephalic, atraumatic. Eyes: Normal inspection bilaterally Ears: Normal inspection bilaterally Nose: Normal inspection Throat/mouth : Moist mucosa Neck: Supple, full range of motion, no goiter Lungs: Quiet respirations Back: Normal range of motion Extremities: Normal range of motion grossly, no cyanosis clubbing or edema of the upper extremities Neurologic: Cranial nerves grossly intact, speech is clear Skin: warm and dry Psychiatric: Calm, cooperative, no apparent delusions or hallucinations Core Measures ACS in differential dx? No CVA/TIA Diagnosis: No Sepsis Present: No Sepsis Focused Exam Completed? No Progress Differential Diagnoses I considered the following diagnoses in my evaluation of the patient: Dietary considerations such as caffeine, anxiety, depression, hyperthyroidism, medication side effect Plan of Care: see notes Initial ED EKG: none Comments: Patient has elected to try a different benzodiazepine given the fact that she has been taking 1 with no apparent interactions with her current medications. Trying a different hypnotic medication could potentially have side effects with her current medications. Departure Departure Disposition: HOME OR SELF CARE Condition: Stable Clinical Impression Primary Impression: Chronic insomnia Referrals: Kavin MAN,Jeff Cardona (PCP/Family) Additional Instructions: Discontinue the temazepam and begin Ativan for sleep. Follow-up with your doctor as scheduled on Sunday. Return if any concerns or sudden worsening. Departure Forms: Customer Survey General Discharge Information Prescriptions: Current Visit Scripts LORazepam (Ativan) 1 TAB PO BID #5 TAB Critical Care Note Critical Care Note Critical Care Time: non-applicable
== END 2018-06-22 22:23 ==
LOC: ERH 20:44
DX: F51.04 Psychophysiologic insomnia (principal)